=== PATIENT | female | born 1940 | race Caucasian/White ===

== ENCOUNTER → 2017-06-17 | Outpatient (CLI) | payer OTHER | END | disposition home or self-care (01) | LOC: SHCH 12:37 | PROVIDERS: ATTEND Internal Medicine Cardiovascular Disease | DX: I10 Essential (primary) hypertension (principal) | CPT/HCPCS: 93306 ==

== ENCOUNTER → 2017-09-29 | Outpatient (CLI) | payer OTHER | END | disposition home or self-care (01) | LOC: RAH 13:12 | PROVIDERS: ATTEND Family Medicine | DX: Z12.31 Encounter for screening mammogram for malignant neoplasm of breast (principal) | CPT/HCPCS: 77067 ==

== ENCOUNTER → 2018-10-19 | Outpatient (CLI) | payer OTHER | END | disposition home or self-care (01) | LOC: RAH 09-30 09:47 | PROVIDERS: ATTEND Family Medicine | DX: Z12.31 Encounter for screening mammogram for malignant neoplasm of breast (principal) | CPT/HCPCS: 77067 ==

== ENCOUNTER → 2020-04-02 | Outpatient (CLI) | payer OTHER | END | disposition home or self-care (01) | LOC: SHCH 10:16 | PROVIDERS: ATTEND Internal Medicine Cardiovascular Disease | DX: I21.3 ST elevation (STEMI) myocardial infarction of unspecified site (principal) | CPT/HCPCS: 93306; 93356 ==

== ENCOUNTER → 2020-10-08 | Outpatient (CLI) | payer OTHER | END | disposition home or self-care (01) | LOC: RAH 13:48 | PROVIDERS: ATTEND Nurse Practitioner Family | DX: Z12.31 Encounter for screening mammogram for malignant neoplasm of breast (principal) | CPT/HCPCS: 77067 ==

== ENCOUNTER 2021-01-27 10:56 | Observation (INO) | payer OTHER ==
[2021-01-27] VITALS (9 sets, daily range): BP systolic 130–171; BP diastolic 32–83
[~2021-01-27] VITALS: Ht 162.6 cm; Wt 63.5 kg
[2021-01-27 11:26] LABS: BASOPHILS % (AUTO) 0.5 % (0.0-5.0); EOSINOPHILS % (AUTO) 2.3 % (0.0-8.0); HEMATOCRIT 48.8 % (36-48); LYMPHOCYTES % (AUTO) 23.8 % (21.0-51.0); MEAN CORPUSCULAR HEMOGLOBIN 28.5 pg (27.0-33.0); MEAN CORPUSCULAR HGB CONC 32.8 g/dL (32.0-36.0); MONOCYTES % (AUTO) 8.9 % (3.0-13.0); NEUTROPHILS % (AUTO) 64.1 % (40.0-77.0); PLATELET COUNT (AUTO) 297 K/uL (130-400); RED BLOOD CELL COUNT(AUTO) 5.61 MIL/uL (4.00-5.50); RED CELL DISTRIBUTION WIDTH 13.5 % (11.0-15.5); WHITE BLOOD COUNT (AUTO) 9.3 K/uL (4.8-10.8)
[2021-01-27 11:35] LABS: CREATININE 1.5 mg/dL (0.5-1.5); POTASSIUM 4.8 mmol/L (3.5-5.1)
[2021-01-27 11:40] LABS: ALBUMIN 3.9 g/dL (3.5-5.0); BILIRUBIN,TOTAL 0.6 mg/dL (0.2-1.0); TOTAL PROTEIN, SERUM 8.7 g/dL (6.0-8.3)
[2021-01-27] MEDS ORDERED: CLONIDINE HCL 0.1 MG TABLET PO PRN (14:00)
[2021-01-27] MEDS ORDERED: ONDANSETRON 4MG INJ IVP PRN (14:00)
[2021-01-27] MEDS ORDERED: 0.9%NACL 1000ML 1,000 ML IV SCH (14:00)
[2021-01-27] MEDS ORDERED: ACETAMINOPHEN 650 MG SUPPOSITORY RC PRN (14:00)
[2021-01-27] MEDS ORDERED: NITROGLYCERIN 0.4 MG SL TAB SL PRN (14:00)
[2021-01-27] MEDS ORDERED: ACETAMINOPHEN 325 MG TAB PO PRN (14:00)
[2021-01-27] MEDS ORDERED: TEMAZEPAM 15 MG CAPSULE PO PRN (14:00)
[2021-01-27 14:14] LABS: APPEARANCE,URINE Clear (CLEAR); BILIRUBIN,URINE Negative (NEGATIVE); COLOR,URINE Yellow (YELLOW); GLUCOSE, URINE (UA) Negative (NEGATIVE); KETONES,URINE Negative (NEGATIVE); LEUKOCYTE ESTERASE ,URINE Trace (NEGATIVE); NITRATE,URINE Negative (NEGATIVE); OCCULT BLOOD,URINE Negative (NEGATIVE); PROTEIN,URINE Negative (NEGATIVE); UROBILINOGEN,URINE 0.2 mg/dL (0.2-1.0)
[2021-01-27] MEDS ORDERED: ATOR40TA71 PO (14:18)
[2021-01-27] MEDS ORDERED: OMEP40CA21 PO (14:18)
[2021-01-27] MEDS ORDERED: LEVO88CA4 PO ×2 (14:18)
[2021-01-27] MEDS ORDERED: DONE5TAB33 PO (14:18)
[2021-01-27] MEDS ORDERED: ALEN70TA80 PO (14:18)
[2021-01-27] MEDS ORDERED: LOSA25TA41 PO (14:18)
[2021-01-27] MEDS ORDERED: TICA90TA PO (14:18)
[2021-01-27] MEDS ORDERED: METO25TA6 PO (14:18)
[2021-01-27 14:33] LABS: BACTERIA,URINE Rare /HPF (None Seen); SQUAMOUS EPITHELIAL CELL,UR Few /HPF (0-2)
[2021-01-27] MEDS: NITROGLYCERIN 1GM OINT 1 INCH/1GM TD SCH ×2 (14:33→23:51)
[2021-01-27 14:34] LABS: MUCUS,URINE Few LPF (None Seen)
[2021-01-27] MEDS: TICAGRELOR 90 MG TABLET PO SCH (21:02)
[2021-01-27] MEDS: ATORVASTATIN 40 MG TABLET PO SCH (21:02)
[2021-01-27] MEDS: METOPROLOL TARTRATE 25 MG TAB PO SCH (21:02)
[2021-01-27] MEDS: DONEPEZIL HCL 5 MG TAB PO SCH (21:02)
[2021-01-28] VITALS (9 sets, daily range): BP systolic 98–158; BP diastolic 40–81
[2021-01-28 05:14] LABS: BASOPHILS % (AUTO) 0.5 % (0.0-5.0); EOSINOPHILS % (AUTO) 2.5 % (0.0-8.0); HEMATOCRIT 44.7 % (36-48); LYMPHOCYTES % (AUTO) 27.6 % (21.0-51.0); MEAN CORPUSCULAR HEMOGLOBIN 28.9 pg (27.0-33.0); MEAN CORPUSCULAR HGB CONC 33.3 g/dL (32.0-36.0); MEAN CORPUSCULAR VOLUME 86.8 fL (79-99); MONOCYTES % (AUTO) 9.4 % (3.0-13.0); NEUTROPHILS % (AUTO) 59.6 % (40.0-77.0); PLATELET COUNT (AUTO) 267 K/uL (130-400); RED BLOOD CELL COUNT(AUTO) 5.15 MIL/uL (4.00-5.50); RED CELL DISTRIBUTION WIDTH 13.3 % (11.0-15.5); WHITE BLOOD COUNT (AUTO) 8.3 K/uL (4.8-10.8)
[2021-01-28 05:30] LABS: B-TYPE NATRIURETIC PEPTIDE 13 pg/mL (0-100)
[2021-01-28 05:46] LABS: CREATININE 1.5 mg/dL (0.5-1.5); MAGNESIUM 1.9 mg/dL (1.80-2.40); PHOSPHORUS 3.7 mg/dL (2.5-4.9); POTASSIUM 4.1 mmol/L (3.5-5.1)
[2021-01-28] MEDS: NITROGLYCERIN 1GM OINT 1 INCH/1GM TD SCH ×3 (05:58→22:00)
[2021-01-28] MEDS: LEVOTHYROXINE 88 MCG TABLET PO SCH (06:01)
[2021-01-28] MEDS: ASPIRIN 81MG CHEW TAB PO SCH (08:25)
[2021-01-28] MEDS: LOSARTAN 25 MG TABLET PO SCH (08:26)
[2021-01-28] MEDS: PANTOPRAZOLE 40 MG TAB DR PO SCH (08:26)
[2021-01-28] MEDS: METOPROLOL TARTRATE 25 MG TAB PO SCH ×2 (08:26→21:00)
[2021-01-28] MEDS: ENOXAPARIN SODIUM 40 MG/0.4 ML SYRINGE SQ SCH (08:27)
[2021-01-28] MEDS: TICAGRELOR 90 MG TABLET PO SCH ×2 (08:34→21:00)
[2021-01-28] MEDS: DONEPEZIL HCL 5 MG TAB PO SCH (21:00)
[2021-01-28] MEDS: ATORVASTATIN 40 MG TABLET PO SCH (21:00)
[2021-01-29 03:46] VITALS: BP 141/68
[2021-01-29 05:42] LABS: HEMATOCRIT 43.4 % (36-48); MEAN CORPUSCULAR HEMOGLOBIN 28.5 pg (27.0-33.0); MEAN CORPUSCULAR HGB CONC 32.7 g/dL (32.0-36.0); MEAN CORPUSCULAR VOLUME 87.1 fL (79-99); RED BLOOD CELL COUNT(AUTO) 4.98 MIL/uL (4.00-5.50); RED CELL DISTRIBUTION WIDTH 13.4 % (11.0-15.5); WHITE BLOOD COUNT (AUTO) 8.7 K/uL (4.8-10.8)
[2021-01-29 05:53] LABS: CREATININE 1.4 mg/dL (0.5-1.5); POTASSIUM 4.1 mmol/L (3.5-5.1)
[2021-01-29] MEDS: NITROGLYCERIN 1GM OINT 1 INCH/1GM TD SCH ×2 (05:58→17:20)
[2021-01-29 08:00] VITALS: BP 131/75
[2021-01-29] MEDS: METOPROLOL TARTRATE 25 MG TAB PO SCH (08:30)
[2021-01-29] MEDS: LOSARTAN 25 MG TABLET PO SCH (08:31)
[2021-01-29] MEDS: LEVOTHYROXINE 88 MCG TABLET PO SCH (08:31)
[2021-01-29] MEDS: ENOXAPARIN SODIUM 40 MG/0.4 ML SYRINGE SQ SCH (09:00)
[2021-01-29] MEDS: ASPIRIN 81MG CHEW TAB PO SCH (09:00)
[2021-01-29] MEDS: TICAGRELOR 90 MG TABLET PO SCH (09:00)
[2021-01-29] MEDS: PANTOPRAZOLE 40 MG TAB DR PO SCH (09:00)
[2021-01-29] MEDS ORDERED: REGADENOSON 0.4 MG/5 ML PF SYG IVP SCH (09:30)
[2021-01-29 12:00] VITALS: BP 135/68
[2021-01-29 16:00] VITALS: BP 149/77
[2021-02-01] MEDS ORDERED: LEVOTHYROXINE 88 MCG TABLET PO SCH (06:30)
== END 2021-01-29 19:00 | disposition home or self-care (01) ==
LOC: EDH 10:56 → EDHIP 13:35 → 3AH 01-28 04:24
PROVIDERS: ADMIT Internal Medicine Critical Care Medicine; ATTEND Internal Medicine Critical Care Medicine
DX: R07.89 Other chest pain (principal); Z20.822 Contact with and (suspected) exposure to COVID-19; I25.110 Atherosclerotic heart disease of native coronary artery with unstable angina pectoris; I12.9 Hypertensive chronic kidney disease with stage 1 through stage 4 chronic kidney disease, or unspecified chronic kidney disease; N18.9 Chronic kidney disease, unspecified; E03.9 Hypothyroidism, unspecified; E78.00 Pure hypercholesterolemia, unspecified; E78.5 Hyperlipidemia, unspecified; F03.90 Unspecified dementia, unspecified severity, without behavioral disturbance, psychotic disturbance, mood disturbance, and anxiety; I25.2 Old myocardial infarction; J44.9 Chronic obstructive pulmonary disease, unspecified; Z77.22 Contact with and (suspected) exposure to environmental tobacco smoke (acute) (chronic); Z79.02 Long term (current) use of antithrombotics/antiplatelets; Z90.710 Acquired absence of both cervix and uterus; Z95.5 Presence of coronary angioplasty implant and graft; Z90.49 Acquired absence of other specified parts of digestive tract; Z98.49 Cataract extraction status, unspecified eye; Z79.82 Long term (current) use of aspirin
CPT/HCPCS: 36415 ×3; 71045; 71250; 78452; 80048 ×2; 80053; 81001; 82550 ×3; 82948; 83735; 83874 ×3; 83880; 84100; 84484 ×4; 85025 ×2; 85027; 85378; 87635; 93005; 93017; 93970; 96360; 96361 ×4; 99285; A9500 ×2; G0378 ×50; J1650; J2785; 96374